=== PATIENT | female | born 1955 | race Caucasian/White ===

== ENCOUNTER 2017-01-21 09:00 | Outpatient (RCR) | payer BC ==
[~2017-01-21 09:00] MED LIST: AML5T PO; ASPI-860 PO; CINN500C14 PO; GLIM4TAB PO; INSU100V32 SC; LEVO100T7 PO; METF1000 PO; METO50TA7 PO; MULT-954 PO; NF-LISIN40 PO; SIMV40TA2 PO
--- NOTE | 2017-01-27 17:52 | PT/OT/ST INITIAL EVALUATION ---
Department of Health and Human Services Form Approved Health Care Financing Administration OMB No. [id number] PLAN OF CARE/ASSESSMENT FOR OUTPATIENT REHABILITATION (Complete for Initial Claims Only) 1. PATIENT'S NAME Cholo Dugan 2. ACC # [id number] 3. HICN NA 4. PROVIDER NO. [id number] 5. TYPE: PT 6. PRIOR HOSPITALIZATION 7. PRIMARY DX Left hip and low back pain 8. SECONDARY DX Stiffness in left hip 9. ONSET DATE Approximately 1 month ago 10. REFERRAL DATE 11. SOC. DATE 01/19/2017 12. TIME OF EVAL 12:54 p.m. 12. REFERRING PHYSICIAN self 13. CHARGES/UNITS NA 14. G CODES NA 15. PRIOR LEVEL OF FUNCTION; PERTINENT HISTORY (Prior therapy results, reason for referral.) S: Reason for referral: Prior to therapy the patient did consent to today's evaluation and treatment. The patient is a 61-year-old female self-referring to physical therapy but under the direction of care of Dr. Lizeth Coulter to address left hip and low back pain. The patient states she has had low back and hip issues in the past, occasionally on the right side, occasionally on the left side. This usually resolves after 2-3 days; however, this time the pain has persisted for approximately 1 month. The patient does state she thinks this was precipitated by starting a new workout which involved walking on the treadmill. The patient states she typically performs pool activities so this was a new program. The patient does state she takes Aleve and Ibuprofen in order to manage this pain. She also stretches 2 times per day- the piriformis muscle which does help somewhat. The patient does state she is having pain down her left leg that goes from her hip down into her knee wrapping around from her low back. The patient does state that the left knee does feel weak at times. She has had no falls but has had the knee give out on her a few times. 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 Current level of function: Currently the patient is having difficulty sleeping, pivoting, bending over, twisting, working in the yard especially with repeated bending activity causing significant difficulty with her daily work activities. Working with small children is challenging. Pt is unable to work out at this time. Therapy history: Include recent chiropractic treatment which does help somewhat and massage. Pain level: Maximum pain level was 8 to 10/10. Typical pain level being 5 to 6/10 since onset began. Patient describes the pain as an aching and throbbing sensation in her low back and left hip which radiates down her leg. Obstacles to delivery of care: Not observed. Aggravating factors: As mentioned above. Relieving factors: Include ice and medication. Diagnostic testing: X-ray in the past which does show spina bifida occulta at L4-5. Past medical history: Does include diabetes mellitus of which blood sugars typically run around 120, her A1C was 8 at last assessment. The patient does have osteoarthritis, hypertension, hypothyroidism and diabetic peripheral neuropathy slightly present. Current medications: Lantus Metformin Synthroid Lisinopril Personal health rating: Patient rates her overall and general health as good. Patient's Goal: Patient's goal for physical therapy is to get rid of the pain and keep it from coming back and to be able to return to her full prior activities including working out. 16. INITIAL ASSESSMENT/SAFETY PRECAUTIONS/MEDICAL COMPLICATIONS (Level of function at start of care. Be specific, use objective measures, list problems.) O: APPEARANCE, OBSERVATION AND GAIT: Patient presents as a middle aged female in apparently healthy condition. She does present to physical therapy with slightly rounded shoulders, forward head as well as having a slightly forward flexed posture resulting in a flattened lumbar spine. With palpation the patient does have increased tone and tightness throughout the right sacroiliac joint and the left piriformis muscle. The patient does have increased tone throughout bilateral lumbar spine paraspinals as well. SPECIAL TESTS: Include deep tendon reflexes which were unable to elicit Achilles reflex bilaterally. Patellar reflexes were 2+/4 or normal bilaterally. With the stork test, the patient did have decreased excursion on the left PSIS. Single leg stance on the right was for 2 seconds, on the left for 1 second. The patient additionally had a positive cross over test indicated a left posterior nominate. RANGE OF MOTION: Flexibility throughout the lumbar spine is approximately 50 percent limited in all planes; however, lumbar spine extension was approximately 75 percent limited. Piriformis flexibility is within normal limits on the right, 25 percent limited on the left. Hamstring flexibility is within normal limits and grossly equal bilaterally. STRENGTH: Throughout the right lower extremity is 4/5 throughout. The left lower extremity grossly 4/5 with the exception of knee flexion with is 3+/5, hip abduction and hip extension which were 3+/5. Core strength is level 0.3/3 October. TODAY'S TREATMENT: Following initial evaluation, ultrasound treatment was performed throughout lumbar spine and left piriformis muscle. Therapeutic exercises were then performed and issued as a home exercise program with emphasis on the flexibility and beginning lumbar stabilization activity. 17. INITIAL POC: (Specify procedures, modalities, short and shelter goals) A: The patient presents to physical therapy with diagnosis of left hip and low back pain with resultant decreased flexibility, decreased strength in the left lower extremity and core. Increased pain and decreased gait and decreased activity tolerance. This patient does have a good prognosis with regular therapy attendance, compliance with home exercise program. The patient is expected to benefit from physical therapy services in order to have increased strength of the lower extremity and core, increased activity tolerance for return to full prior activities. Pt does have probable SIJ sprain. OUTCOME ASSESSMENT: Lower extremity functional index which scored 43/80. GOALS: 1. The patient to be independent and compliant with home exercise program in 1 week. 2. The patient with no reports of left lower extremity radicular symptoms in 3 weeks to be able to sleep at night. 3. The patient with left lower extremity strength at least 4+/5 throughout in 6 weeks to allow working with her daycare children without restriction. 4. The patient with a lower extremity functional index score at least 60/80 in 6 weeks to allow return to full prior activity. The diagnosis, prognosis treatment plan and expected outcome were discussed with the patient and the patient did agree to today's established plan of care. P: Plan to treat patient 2 times per week for 6 weeks in order to address left hip and low back pain. Therapeutic treatments to include modalities to decrease pain, inflammation and spasming. Manual therapy techniques as indicated. Therapeutic exercise targeting flexibility and lumbar stabilization activities with lower extremity strengthening, gait training, balance and proprioceptive training and patient education and home exercises program to be advanced as warranted. 18. FREQUENCY 19. DURATION 20. FUNCTIONAL LEVEL (End of claim period) 21. PHYSICIAN SIGNATURE ? ON FILE OR ENTER HERE: 22. DATE: I certify the need for these services furnished under this plan of care and if for partial hospitalization. 23. CERTIFICATION FROM THROUGH FORM [id number]
== END 2017-01-25 11:10 | disposition home or self-care (01) ==
LOC: PT 09:00
PROVIDERS: ATTEND Family Medicine
DX: M54.5 Low back pain (principal); M25.552 Pain in left hip